=== PATIENT | male | born 1990 | race Caucasian/White ===

== ENCOUNTER → 2016-07-29 | Outpatient (CLI) | payer MEDICAID, SELFPAY | LOC: M OUTALCOH 08:05 | PROVIDERS: ATTEND Psychiatry & Neurology Psychiatry | DX: Z13.9 Encounter for screening, unspecified (principal); F10.20 Alcohol dependence, uncomplicated ==

== ENCOUNTER 2016-09-02 15:00 | Outpatient (RCR) | payer MEDICAID, OTHER | END 2016-09-07 | LOC: M OUTALCOH 15:00 | PROVIDERS: ATTEND Psychiatry & Neurology Psychiatry | DX: F10.20 Alcohol dependence, uncomplicated (principal); F17.200 Nicotine dependence, unspecified, uncomplicated ==

== ENCOUNTER 2016-10-05 15:00 | Outpatient (RCR) | payer MEDICAID | END 2016-10-07 | LOC: M OUTALCOH 15:00 | PROVIDERS: ATTEND Psychiatry & Neurology Psychiatry | DX: F10.20 Alcohol dependence, uncomplicated (principal); F17.200 Nicotine dependence, unspecified, uncomplicated ==

== ENCOUNTER 2016-11-03 16:00 | Outpatient (RCR) | payer OTHER, MEDICAID | END 2016-11-07 | LOC: M OUTALCOH 16:00 | PROVIDERS: ATTEND Psychiatry & Neurology Psychiatry | DX: F10.20 Alcohol dependence, uncomplicated (principal); F17.200 Nicotine dependence, unspecified, uncomplicated ==

== ENCOUNTER 2016-12-07 08:45 | Outpatient (RCR) | payer OTHER, MEDICAID | END 2016-12-08 | LOC: M OUTALCOH 08:45 | PROVIDERS: ATTEND Psychiatry & Neurology Psychiatry | DX: F10.20 Alcohol dependence, uncomplicated (principal); F17.200 Nicotine dependence, unspecified, uncomplicated ==

== ENCOUNTER 2017-01-04 08:00 | Outpatient (RCR) | payer MEDICAID, OTHER | END 2017-01-07 | LOC: M OUTALCOH 08:00 | PROVIDERS: ATTEND Psychiatry & Neurology Psychiatry | DX: F10.20 Alcohol dependence, uncomplicated (principal); F17.200 Nicotine dependence, unspecified, uncomplicated ==

== ENCOUNTER 2017-04-19 10:52 | Outpatient (RCR) | payer MEDICAID | END 2017-05-10 | LOC: M OUTALCOH 10:52 | DX: F10.20 Alcohol dependence, uncomplicated (principal); F17.200 Nicotine dependence, unspecified, uncomplicated ==

== ENCOUNTER 2018-10-28 10:29 | Inpatient (IN) | payer MEDICAID, OTHER ==
[~2018-10-28] VITALS: Ht 165.1 cm; Wt 65.6 kg
[2018-10-28] MEDS ORDERED: NS 1,000 ML IV ONE ×2 (11:45→13:45)
[2018-10-28 12:53] LABS: BASO % 0.5 % (0.0-1.0); EOS # 0.1 10^3/uL (0.0-0.50); EOS % 2.5 % (0.0-3.0); HEMOGLOBIN 16.7 g/dl (13.5-17.5); LYMPH # 1.1 10^3/uL (1.5-6.5); MEAN CORPUSCULAR HEMOGLOBIN 28.8 pg (27.0-33.0); MEAN CORPUSCULAR HGB CONC 34.8 g/dl (32.0-36.5); MEAN CORPUSCULAR VOLUME 82.8 fl (80.0-96.0); MONO # 0.7 10^3/uL (0.0-0.8); MONO % 11.8 % (0.0-5.0); NEUTROPHILS # 3.7 10^3/uL (1.8-7.7); NEUTROPHILS % 65.8 % (36.0-66.0); PLATELET COUNT, AUTOMATED 210 10^3/uL (150-450); WHITE BLOOD COUNT 5.7 10^3/uL (4.0-10.0)
[2018-10-28 13:07] LABS: INR 1.45; PROTHROMBIN TIME 17.4 SECONDS (11.8-14.0)
[2018-10-28 13:31] LABS: APPEARANCE, URINE MANUAL HAZY (CLEAR)
[2018-10-28 13:32] LABS: COLOR, URINE MANUAL AMBER (YELLOW); GLUCOSE, URINE (UA) MANUAL NEGATIVE (NEGATIVE); KETONE, URINE MANUAL 3+ mg/dL (NEGATIVE); PROTEIN, URINE MANUAL 1+ mg/dL (NEGATIVE)
[2018-10-28 13:33] LABS: BILIRUBIN, URINE MANUAL OBSCURED (NEGATIVE); BLOOD URINE MANUAL OBSCURED (NEGATIVE); LEUKOCYTE ESTERASE, URINE MAN OBSCURED (NEGATIVE); NITRITE, URINE MANUAL OBSCURED (NEGATIVE); UROBILINOGEN, URINE MANUAL OBSCURED mg/dl (NORMAL)
[2018-10-28 13:37] LABS: WBC, URINE 0-1 /hpf (0-3)
[2018-10-28 13:38] LABS: BACTERIA, URINE NONE SEEN; HYALINE CAST, URINE NONE SEEN /lpf (0-1); MUCUS, URINE SMALL AMOUNT (NEGATIVE); RBC, URINE NONE SEEN /hpf (0-3); SQUAMOUS EPITHELIAL CELL URINE NONE SEEN /hpf (SMALL AMT)
[2018-10-28 13:39] LABS: AMPHETAMINES LEVEL URINE POSITIVE (NEGATIVE); BARBITURATES URINE NEGATIVE (NEGATIVE); BENZODIAZEPINES URINE NEGATIVE (NEGATIVE); CANNABINOIDS URINE NEGATIVE (NEGATIVE); COCAINE METABOLITE URINE NEGATIVE (NEGATIVE); METHADONE URINE NEGATIVE (NEGATIVE); OPIATES URINE POSITIVE (NEGATIVE); PHENCYCLIDINE URINE NEGATIVE (NEGATIVE)
[2018-10-28 13:40] LABS: ALT/SGPT 3878 U/L (12-78); AMYLASE 17 U/L (25-115); BILIRUBIN,DIRECT 8.6 MG/DL (0.0-0.2); BILIRUBIN,TOTAL 12.8 MG/DL (0.2-1.0); BLOOD UREA NITROGEN 9 MG/DL (7-18); CALCIUM LEVEL 7.9 MG/DL (8.5-10.1); CARBON DIOXIDE LEVEL 27 MEQ/L (21-32); CHLORIDE LEVEL 98 MEQ/L (98-107); CK-MB VALUE MASS < 1.0 NG/ML (<3.6); CPK CREATINE PHOSPHOKINASE 51 U/L (39-308); CREATININE FOR GFR 0.73 MG/DL (0.70-1.30); GLOMERULAR FILTRATION RATE > 60.0 (>60); GLUCOSE, FASTING 63 MG/DL (70-100); LIPASE 84 U/L (73-393); MB/CK RELATIVE INDEX 1.96 (< OR =4); POTASSIUM SERUM 4.5 MEQ/L (3.5-5.1); SODIUM LEVEL 134 MEQ/L (136-145); TOTAL PROTEIN 6.2 GM/DL (6.4-8.2); TROPONIN I < 0.02 NG/ML (< 0.10)
[2018-10-28] MEDS ORDERED: DEXTROSE 50% 50 ML SYRINGE IV STA (13:54)
[2018-10-28 14:17] LABS: ACETAMINOPHEN LEVEL < 2.0 UG/ML (10.0-30.0); ETHYL ALCOHOL (ETHANOL) < 0.003 % (0.000-0.010); SALICYLATE LEVEL < 1.7 MG/DL (5.0-30.0)
--- NOTE | 2018-10-28 14:43 | REP ---
CHEST, TWO VIEWS: There is no evidence of acute infiltrate. No pleural effusion is seen. The heart is normal in size. The mediastinal silhouette is unremarkable. The visualized osseous structures are intact. IMPRESSION: No acute pulmonary disease. Electronically Signed by Henry Villavicencio MD 10/29/2018 12:03 A
--- NOTE | 2018-10-28 15:18 | REP ---
RIGHT UPPER QUADRANT ULTRASOUND: Real-time sonographic evaluation of the right upper quadrant performed. Gallbladder demonstrates significant diffuse gallbladder wall thickening up to 9 mm. There is gallbladder wall edema. No gallstones are seen in the gallbladder. There is no free fluid. There is no intrahepatic or extrahepatic biliary dilatation, common bile duct measuring 4 mm. The liver and pancreas demonstrate no gross abnormality, pancreas not optimally seen in the region of the tail due to overlying bowel gas. Right kidney demonstrates no hydronephrosis with normal size 11.2 cm in length. IMPRESSION: Diffuse significant gallbladder wall thickening and edema. No gallstones are seen and there is no free fluid or biliary dilatation. Electronically Signed by Henry Villavicencio MD 10/29/2018 12:09 A
[2018-10-28] MEDS: NS 1,000 ML IV SCH ×2 (16:37→23:29)
--- NOTE | 2018-10-28 17:01 | HPEPDOC ---
General Date of Admission Oct 28, 2018 at 15:53 Date of Service: Oct 28, 2018 Chief Complaint The patient is a 28-year-old male admitted with a reason for visit of Transaminitis. History of Present Illness 28-year-old male with past medical history of polysubstance abuse presented to the ER with a chief complaint of intractable nausea/vomiting and yellowish discoloration of the skin for the past 7 days. The patient endorses that he uses intravenous heroin and methamphetamine drugs 2 times a day for the last 7 days. Prior to that, the patient states that he has been using anywhere from 5-6 times a day. The patient denies any fevers, chills, recent travel, ingestion of foreign foods, or taking new medications or any [id number] medications in excess. The patient did admit to taking 1 tablet of 500 mg Tylenol daily for the last 7 days. He denies any alcohol use. In the ER, the patient was noted to have severely elevated liver function tests. This is likely secondary to acute viral hepatitis given his IV drug abuse. The case was discussed with GI, and the patient will be seen in consult. He will be admitted under the hospitalist service for supportive treatment and further clinical evaluation. Home Medications No Active Prescriptions or Reported Meds Allergies Coded Allergies: amoxicillin (Verified Adverse Reaction, Unknown, gets sick, 10/28/18) Past Medical History Medical History As noted in HPI. Surgical History None according to the patient Family History Significant Family History: No pertinent family hx Social History * Smoker: current smoker (patient admits to smoking a pack of tobacco daily.) Alcohol: Denies (states that he hasn't drank any alcohol in 2 years) Drugs: IV drug use (patient states that he injects methamphetamines and heroin twice a day for the past 7 days, and usually injects 5-6 times a day) Review of Systems Other systems 10 point review of systems negative unless otherwise specified in HPI. Physical Examination General Exam: Positive: Alert, Cooperative, Mild Distress (right upper quadrant abdominal pain), Other (jaundiced appearing) Eye Exam: Positive: Sclera icteric ENT Exam: Positive: Atraumatic, Mucous membr. moist/pink Neck Exam: Negative: JVD Chest Exam: Positive: Clear to auscultation, Normal air movement Heart Exam: Positive: Rate Normal, Normal S1, Normal S2 Abdomen Exam: Positive: Soft, Tenderness (tenderness to deep palpation in the right upper quadrant. No rebound tenderness, guarding, or rigidity noted.) Extremity Exam: Negative: Tenderness, Swelling Neuro Exam: Positive: Normal Speech Psych Exam: Positive: Mental status NL, Mood NL, Oriented x 3 Vital Signs Vital Signs Date Time Temp Pulse Resp B/P (MAP) Pulse Ox O2 Delivery O2 Flow Rate FiO2 10/28/18 14:44 98.3 85 16 117/66 (83) 98 Room Air Laboratory Data Labs 24H Laboratory Tests 2 10/28/18 12:46: Immature Granulocyte % (Auto) 0.4, White Blood Count 5.7, Red Blood Count 5.80, Hemoglobin 16.7, Hematocrit 48.0, Mean Corpuscular Volume 82.8, Mean Corpuscular Hemoglobin 28.8, Mean Corpuscular Hemoglobin Concent 34.8, Red Cell Distribution Width 14.3, Platelet Count 210, Neutrophils (%) (Auto) 65.8, Lymphocytes (%) (Auto) 19.0L, Monocytes (%) (Auto) 11.8H, Eosinophils (%) (Auto) 2.5, Basophils (%) (Auto) 0.5, Neutrophils # (Auto) 3.7, Lymphocytes # (Auto) 1.1L, Monocytes # (Auto) 0.7, Eosinophils # (Auto) 0.1, Basophils # (Auto) 0.0, Nucleated Red Blood Cells % (auto) 0.0, Prothrombin Time 17.4H, Prothromb Time International Ratio 1.45, Anion Gap 9, Glomerular Filtration Rate > 60.0, Calcium Level 7.9L, Aspartate Amino Transf (AST/SGOT) 3458H, Alanine Aminotransferase (ALT/SGPT) 3878H, Alkaline Phosphatase 289H, Total Bilirubin 12.8H, Direct Bilirubin 8.6H, Total Creatine Kinase 51, Creatine Kinase MB < 1.0, Creatine Kinase MB Relative Index 1.96, Troponin I < 0.02, Total Protein 6.2L, Albumin 3.0L, Albumin/Globulin Ratio 0.94L, Amylase Level 17L, Lipase 84, Salicylates Level < 1.7L, Acetaminophen Level < 2.0L, Ethyl Alcohol Level < 0.003 10/28/18 12:59: Bedside Urine Color (LAB) AMBERH, Bedside Urine Appearance (LAB) HAZYH, Bedside Urine pH (LAB) 6.0, Bedside Urine Specific [place] (LAB 1.030, Bedside Urine P rotein (LAB) 1+H, Bedside Urine Glucose (UA) NEGATIVE, Bedside Urine Ketones (LAB) 3+H, Bedside Urine Blood OBSCUREDH, Bedside Urine Nitrite (LAB) OBSCUREDH, Bedside Urine Bilirubin (LAB) OBSCUREDH, Bedside Urine Urobilinogen (LAB) OBSCUREDH, Bedside Urine Leukocyte Esterase (L OBSCUREDH, Urine WBC 0-1, Urine RBC NONE SEEN, Urine Squamous Epithelial Cells NONE SEEN, Urine Bacteria NONE SEEN, Urine Hyaline Casts NONE SEEN, Urine Mucus SMALL AMOUNTH, Urine Sediment Examination PERFORMED, Urine Amphetamines Screen POSITIVEH, Urine Benzodiazepines Screen NEGATIVE, Urine Opiates Screen POSITIVEH, Urine Methadone Screen NEGATIVE, Urine Barbiturates Screen NEGATIVE, Urine Phencyclidine Screen NEGATIVE, Urine Cocaine Metabolite Screen NEGATIVE, Urine Cannabinoids Screen NEGATIVE 10/28/18 14:49: Bedside Glucose (Misc Panel) 177H 10/28/18 14:52: Ammonia 25 CBC/BMP Laboratory Tests 10/28/18 12:46 Red Blood Count 5.80, Mean Corpuscular Volume 82.8, Mean Corpuscular Hemoglobin 28.8, Mean Corpuscular Hemoglobin Concent 34.8, Red Cell Distribution Width 14.3, Neutrophils (%) (Auto) 65.8, Lymphocytes (%) (Auto) 19.0 L, Monocytes (%) (Auto) 11.8 H, Eosinophils (%) (Auto) 2.5, Basophils (%) (Auto) 0.5, Neutrophils # (Auto) 3.7, Lymphocytes # (Auto) 1.1 L, Monocytes # (Auto) 0.7, Eosinophils # (Auto) 0.1, Basophils # (Auto) 0.0 Plan / VTE VTE Prophylaxis Ordered?: Yes Plan Plan Severely Elevated Liver Function Tests Likely 2/2 IV Drug Abuse, and possible acute viral hepatitis U/S GB notable for wall thickening, edema, no stones noted--no CBD dilatation noted Tylenol level within normal limits, INR elevated at 1.45 Renal function and mentation intact Case discussed with Dr. Palma of GI, will see in consultation. Acute Hepatitis panel ordered, we will serially monitor the patient's neurological function, and renal function If the patient's renal function worsens, INR elevates further, or he has a change in mental status we will consider transfer to a tertiary care center. IV drug abuse Patient counseled on cessation DVT prophylaxis Marion/LURDES Chambers MD Oct 28, 2018 17:01
[2018-10-28 18:34] LABS: INR 1.44; PROTHROMBIN TIME 17.3 SECONDS (11.8-14.0)
[2018-10-28 19:00] LABS: CK-MB VALUE MASS < 1.0 NG/ML (<3.6); CPK CREATINE PHOSPHOKINASE 29 U/L (39-308); MB/CK RELATIVE INDEX 3.45 (< OR =4); TROPONIN I < 0.02 NG/ML (< 0.10)
[2018-10-28 19:20] VITALS: BP 126/74
--- NOTE | 2018-10-28 19:48 | ECGEPIP ---
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
[2018-10-28] MEDS ORDERED: KETOROLAC 60 MG/2 ML VIAL (J1885) IM ONE (23:00)
[2018-10-29 06:00] VITALS: BP 126/88
[2018-10-29 06:13] LABS: INR 1.36; PROTHROMBIN TIME 16.5 SECONDS (11.8-14.0)
[2018-10-29 06:14] LABS: HEMATOCRIT 44.1 % (42.0-52.0); HEMOGLOBIN 15.1 g/dl (13.5-17.5); MEAN CORPUSCULAR HEMOGLOBIN 28.7 pg (27.0-33.0); MEAN CORPUSCULAR HGB CONC 34.2 g/dl (32.0-36.5); MEAN CORPUSCULAR VOLUME 83.7 fl (80.0-96.0); PLATELET COUNT, AUTOMATED 231 10^3/uL (150-450); RED BLOOD COUNT 5.27 10^6/uL (4.30-6.10); WHITE BLOOD COUNT 5.7 10^3/uL (4.0-10.0)
[2018-10-29] MEDS: NS 1,000 ML IV SCH ×3 (06:30→22:49)
[2018-10-29 06:50] LABS: ALBUMIN 2.5 GM/DL (3.2-5.2); ALT/SGPT 3254 U/L (12-78); BILIRUBIN,TOTAL 11.3 MG/DL (0.2-1.0); BLOOD UREA NITROGEN 5 MG/DL (7-18); CALCIUM LEVEL 7.7 MG/DL (8.5-10.1); CARBON DIOXIDE LEVEL 26 MEQ/L (21-32); CHLORIDE LEVEL 109 MEQ/L (98-107); GLOMERULAR FILTRATION RATE > 60.0 (>60); GLUCOSE, FASTING 81 MG/DL (70-100); MAGNESIUM LEVEL 2.1 MG/DL (1.8-2.4); POTASSIUM SERUM 3.9 MEQ/L (3.5-5.1); SODIUM LEVEL 140 MEQ/L (136-145); TOTAL PROTEIN 5.8 GM/DL (6.4-8.2)
[2018-10-29 10:36] LABS: HEPATITIS A ANTIBODY IGM POSITIVE (NEGATIVE); HEPATITIS B CORE ANTIBODY IGM NEGATIVE (NEGATIVE); HEPATITIS B SURFACE ANTIGEN NEGATIVE (NEGATIVE); HEPATITIS C VIRUS ABY INDEX 0.1 INDEX (<0.8)
[2018-10-29] MEDS: KETOROLAC 30 MG/ML VIAL (J1885) IV PRN ×2 (12:19→22:51)
[2018-10-29 14:00] VITALS: BP 120/75
--- NOTE | 2018-10-29 18:02 | CR.PDOC ---
General Date of Consultation: Oct 29, 2018 Referring Provider: LURDES BUTT MD Attending Physician: UYEN BLANCAS MD Consultation REASON FOR CONSULTATION/CHIEF COMPLAINT: Abnormal Liver tests. HISTORY OF PRESENT ILLNESS: Victorino Saeed is a 28 year old male patient with history of multiple substance abuse (IV heroin and IV methamphetamine), presented to the ED with one week nausea/vomiting and yellowing of the skin. The patient and his girlfriend report that once his nausea started almost a week ago, he began vomiting several times a day and sometimes dry-heaving. In addition, the patient reports epigastric and RUQ pain, 6/10 in severity during this time. He also reports subjective fevers/chills, and thinks he has had about 20 lb weight loss in the past several months. He has taken 1 tablet of 500mg Tylenol every day for the past 7 days. He has had no diarrhea during this time frame, but reports severe constipation and only has a bowel movement every 4-5 days. He denies any black tarry or bloody stools. ALLERGIES: Please see below. HOME MEDICATIONS: None PAST MEDICAL HISTORY: As above. PAST SURGICAL HISTORY: none reported FAMILY HISTORY: noncontributory SOCIAL HISTORY: Smokes 1 ppd Reports history of heavy alcohol use in the past (~30 pack of beer/day), but no longer consuming alcohol Reports drug use: IV heroin, IV methamphetamine (injects 5-6 times a day) and reports he does not always use clean needles REVIEW OF SYSTEMS: CONSTITUTIONAL: Overall reports subjective fevers/chills/night sweats HEENT: No ear discharge/pain, no dysphagia CARDIOVASCULAR: No chest pain, no palpitations, no leg swelling RESPIRATORY: No shortness of breath, no wheezing, no cough GENITOURINARY: No hematuria, no burning during urination MUSCULOSKELETAL: No joint pain, ambulating well GASTROINTESTINAL: as stated above SKIN: no new rashes NEUROLOGICAL: No loss of sensation PSYCHIATRIC: depressed mood ENDOCRINE: no hot/cold intolerance HEMATOLOGIC/LYMPHATIC: no new bruising/lumps/bumps PHYSICAL EXAMINATION: VITAL SIGNS: Please see below. GENERAL APPEARANCE: patient is laying in bed, appears stated age, no acute distress, calm, conversive HEENT: Some scleral icterus noted. normal oropharynx. no enlarged cervical lymph nodes RESPIRATORY: clear to auscultation bilaterally without any adventitious breath sounds appreciated CARDIOVASCULAR: normal S1/S2, no murmurs/rubs/gallops appreciated ABDOMEN: soft, tender to palpation in epigastric region and RUQ, no masses or o rganomegaly, + bowel sounds EXTREMITIES: no pedal edema, pulses palpable NEUROLOGICAL: CN 2-12 intact without any focal deficits PSYCHIATRIC: normal mood/affect LABORATORY DATA: Please see below. Imaging: reviewed. Impression: 28 Year old male with history of IV drug use and heavy alcohol use in past, with acute onset of nausea/vomiting and gradually progressing jaundice for past 1 week, found to have severely elevated transaminitis in labs, RUQ US demonstrates gallbladder wall thickening but no evidence of obstruction or stricture. DDx is most likely acute viral hepatitis vs autoimmune hepatitis vs Ischemic hepatitis. very unlikely NSAIDs and medication related. Recommendations: - Monitor Liver panel, BUN/ Cr , ptt/ INR, Mental status closely. - Avoid hepatotoxic medications. - Obtain LDH ( add on the the initial labs) - Diet as tolerated. - IV hydration. - High protein diet. - If patient continues to report nausea, would recommend Zofran. - Based on the clinical course if worsening liver function, Renal function or INR, or mental status to refer to liver center. - Supportive care until trending down of liver abnormalities. Plan of care discussed with patient and recommendations communicated to Primary team. Laboratory Data Labs 24H Laboratory Tests 2 10/28/18 12:46: Immature Granulocyte % (Auto) 0.4, White Blood Count 5.7, Red Blood Count 5.80, Hemoglobin 16.7, Hematocrit 48.0, Mean Corpuscular Volume 82.8, Mean Corpuscular Hemoglobin 28.8, Mean Corpuscular Hemoglobin Concent 34.8, Red Cell Distribution Width 14.3, Platelet Count 210, Neutrophils (%) (Auto) 65.8, Lymphocytes (%) (Auto) 19.0L, Monocytes (%) (Auto) 11.8H, Eosinophils (%) (Auto) 2.5, Basophils (%) (Auto) 0.5, Neutrophils # (Auto) 3.7, Lymphocytes # (Auto) 1.1L, Monocytes # (Auto) 0.7, Eosinophils # (Auto) 0.1, Basophils # (Auto) 0.0, Nucleated Red Blood Cells % (auto) 0.0, Prothrombin Time 17.4H, Prothromb Time International Ratio 1.45, Anion Gap 9, Glomerular Filtration Rate > 60.0, Calcium Level 7.9L, Aspartate Amino Transf (AST/SGOT) 3458H, Alanine Aminotransferase (ALT/SGPT) 3878H, Alkaline Phosphatase 289H, Total Bilirubin 12.8H, Direct Bilirubin 8.6H, Total Creatine Kinase 51, Creatine Kinase MB < 1.0, Creatine Kinase MB Relative Index 1.96, Troponin I < 0.02, Total Protein 6.2L, Albumin 3.0L, Albumin/Globulin Ratio 0.94L, Amylase Level 17L, Lipase 84, Salicylates Level < 1.7L, Acetaminophen Level < 2.0L, Ethyl Alcohol Level < 0.003 10/28/18 12:59: Bedside Urine Color (LAB) AMBERH, Bedside Urine Appearance (LAB) HAZYH, Bedside Urine pH (LAB) 6.0, Bedside Urine Specific [place] (LAB 1.030, Bedside Urine Protein (LAB) 1+H, Bedside Urine Glucose (UA) NEGATIVE, Bedside Urine Ketones (LAB) 3+H, Bedside Urine Blood OBSCUREDH, Bedside Urine Nitrite (LAB) OBSCUREDH, Bedside Urine Bilirubin (LAB) OBSCUREDH, Bedside Urine Urobilinogen (LAB) OBSCUREDH, Bedside Urine Leukocyte Esterase (L OBSCUREDH, Urine WBC 0-1, Urine RBC NONE SEEN, Urine Squamous Epithelial Cells NONE SEEN, Urine Bacteria NONE SEEN, Urine Hyaline Casts NONE SEEN, Urine Mucus SMALL AMOUNTH, Urine Sediment Examination PERFORMED, Urine Amphetamines Screen POSITIVEH, Urine Benzodiazepines Screen NEGATIVE, Urine Opiates Screen POSITIVEH, Urine Methadone Screen NEGATIVE, Urine Barbiturates Screen NEGATIVE, Urine Phencyclidine Screen NEGATIVE, Urine Cocaine Metabolite Screen NEGATIVE, Urine Cannabinoids Screen NEGATIVE 10/28/18 14:49: Bedside Glucose (Misc Panel) 177H 10/28/18 14:52: Ammonia 25 10/28/18 17:59: Prothrombin Time 17.3H, Prothromb Time International Ratio 1.44, Total Creatine Kinase 29L, Creatine Kinase MB < 1.0, Creatine Kinase MB Relative Index 3.45, Troponin I < 0.02 10/29/18 05:33: Prothrombin Time 16.5H, Prothromb Time International Ratio 1.36, Nucleated Red Blood Cells % (auto) 0.0, Anion Gap 5L, Glomerular Filtration Rate > 60.0, Blood Urea Nitrogen 5L, Creatinine 0.60L, Sodium Level 140, Potassium Level 3.9, Chloride Level 109H, Carbon Dioxide Level 26, Calcium Level 7.7L, Aspartate Amino Transf (AST/SGOT) 2339H, Alanine Aminotransferase (ALT/SGPT) 3254H, Alkaline Phosphatase 247H, Total Bilirubin 11.3H, Total Protein 5.8L, Albumin 2.5L, Magnesium Level 2.1, Albumin/Globulin Ratio 0.76L CBC/BMP Laboratory Tests 10/28/18 12:46 Red Blood Count 5.80, Mean Corpuscular Volume 82.8, Mean Corpuscular Hemoglobin 28.8, Mean Corpuscular Hemoglobin Concent 34.8, Red Cell Distribution Width 14.3, Neutrophils (%) (Auto) 65.8, Lymphocytes (%) (Auto) 19.0 L, Monocytes (%) (Auto) 11.8 H, Eosinophils (%) (Auto) 2.5, Basophils (%) (Auto) 0.5, Neutrophils # (Auto) 3.7, Lymphocytes # (Auto) 1.1 L, Monocytes # (Auto) 0.7, Eosinophils # (Auto) 0.1, Basophils # (Auto) 0.0 10/29/18 05:33 Red Blood Count 5.27, Mean Corpuscular Volume 83.7, Mean Corpuscular Hemoglobin 28.7, Mean Corpuscular Hemoglobin Concent 34.2, Red Cell Distribution Width 14.4, Calcium Level 7.7 L, Aspartate Amino Transf (AST/SGOT) 2339 H, Alanine Aminotransferase (ALT/SGPT) 3254 H, Alkaline Phosphatase 247 H, Total Bilirubin 11.3 H, Total Protein 5.8 L, Albumin 2.5 L Allergies Coded Allergies: amoxicillin (Verified Adverse Reaction, Unknown, gets sick, 10/28/18) Home Medications No Active Prescriptions or Reported Meds WERO SANDERSON MD Oct 29, 2018 10:24 UYEN BLANCAS MD Oct 29, 2018 18:02
[2018-10-29 18:42] LABS: INR 1.25; PROTHROMBIN TIME 15.4 SECONDS (11.8-14.0)
[2018-10-29 18:57] LABS: BLOOD UREA NITROGEN 4 MG/DL (7-18); CALCIUM LEVEL 8.5 MG/DL (8.5-10.1); CARBON DIOXIDE LEVEL 29 MEQ/L (21-32); CHLORIDE LEVEL 107 MEQ/L (98-107); CREATININE FOR GFR 0.69 MG/DL (0.70-1.30); GLOMERULAR FILTRATION RATE > 60.0 (>60); GLUCOSE, FASTING 97 MG/DL (70-100); POTASSIUM SERUM 3.9 MEQ/L (3.5-5.1); SODIUM LEVEL 140 MEQ/L (136-145)
[2018-10-29 19:44] LABS: HIV 1&2 SCREEN CENTAUR NEGATIVE (NEGATIVE); LDH LACTATE DEHYDROGENASE 402 U/L (87-241)
--- NOTE | 2018-10-29 20:38 | IPNPDOC ---
Subjective Date Seen The patient was seen on 10/29/18. at 1045am Subjective Chief Complaint/HPI abdominal pain Events since last encounter patient continues to have abdominal pain Objective Physical Examination General Exam: Positive: Alert, Cooperative, No Acute Distress, Mild Distress, Other (jaundiced appearing) Eye Exam: Positive: Sclera icteric ENT Exam: Positive: Atraumatic, Mucous membr. moist/pink Neck Exam: Negative: JVD Chest Exam: Positive: Clear to auscultation, Normal air movement Heart Exam: Positive: Rate Normal, Normal S1, Normal S2 Abdomen Exam: Positive: Soft, Tenderness (tenderness to deep palpation in the right upper quadrant. No rebound tenderness, guarding, or rigidity noted.) Extremity Exam: Negative: Tenderness, Swelling Neuro Exam: Positive: Normal Speech Psych Exam: Positive: Mental status NL, Mood NL, Oriented x 3 Assessment /Plan Assessment is a 28 yr old M w a PMH of polysubstance abuse who is admitted for management of viral vs alcoholic hepatitis 1.acute hepatitis -possibly 2/2 Hep A vs drugs & alcohol -no signs of overt hepatic encephalopathy & ammonia wnl -LFTs trending down Plan: continue to trend LFTs / f/u w GI / Toraldon PRN for pain 2. nausea and vomiting Plan: zofran PRN DISPO: pending improvement Plan/VTE VTE Prophylaxis Ordered?: Yes VS, I&O, 24H, Fishbone Vital Signs/I&O Vital Signs Date Time Temp Pulse Resp B/P (MAP) Pulse Ox O2 Delivery O2 Flow Rate FiO2 10/29/18 14:00 98.1 77 18 120/75 (90) 99 10/28/18 17:22 Room Air I&O- Last 24 Hours up to 6 AM 10/29/18 06:00 Intake Total 3900 ml Output Total 1900 ml Balance 2000 ml Laboratory Data 24H LABS Laboratory Tests 2 10/29/18 05:33: Nucleated Red Blood Cells % (auto) 0.0, Prothrombin Time 16.5H, Prothromb Time International Ratio 1.36, Anion Gap 5L, Glomerular Filtration Rate > 60.0, Blood Urea Nitrogen 5L, Creatinine 0.60L, Sodium Level 140, Potassium Level 3.9, Chloride Level 109H, Carbon Dioxide Level 26, Calcium Level 7.7L, Aspartate Amino Transf (AST/SGOT) 2339H, Alanine Aminotransferase (ALT/SGPT) 3254H, Alkaline Phosphatase 247H, Total Bilirubin 11.3H, Total Protein 5.8L, Albumin 2 .5L, Magnesium Level 2.1, Albumin/Globulin Ratio 0.76L 10/29/18 18:03: Prothrombin Time 15.4H, Prothromb Time International Ratio 1.25, Anion Gap 4L, Glomerular Filtration Rate > 60.0, Blood Urea Nitrogen 4L, Creatinine 0.69L, Sodium Level 140, Potassium Level 3.9, Chloride Level 107, Carbon Dioxide Level 29, Calcium Level 8.5, Lactate Dehydrogenase 402H, HIV Antigen/Antibody Combo Qual NEGATIVE CBC/BMP Laboratory Tests 10/29/18 05:33 Red Blood Count 5.27, Mean Corpuscular Volume 83.7, Mean Corpuscular Hemoglobin 28.7, Mean Corpuscular Hemoglobin Concent 34.2, Red Cell Distribution Width 14.4, Calcium Level 7.7 L, Aspartate Amino Transf (AST/SGOT) 2339 H, Alanine Aminotransferase (ALT/SGPT) 3254 H, Alkaline Phosphatase 247 H, Total Bilirubin 11.3 H, Total Protein 5.8 L, Albumin 2.5 L 10/29/18 18:03 Calcium Level 8.5 TRELL MERCADO MD Oct 29, 2018 20:38
[2018-10-29 22:00] VITALS: BP 127/80
[2018-10-29] MEDS: DOCUSATE SODIUM 100 MG CAP PO PRN (22:49)
[2018-10-30] MEDS: ONDANSETRON 4MG/2ML VIAL (J2405) IV PRN ×2 (05:26→17:56)
[2018-10-30] MEDS: NS 1,000 ML IV SCH ×4 (05:27→20:50)
[2018-10-30 06:00] VITALS: BP 123/81
[2018-10-30 06:06] LABS: HEMATOCRIT 42.4 % (42.0-52.0); HEMOGLOBIN 14.6 g/dl (13.5-17.5); MEAN CORPUSCULAR HEMOGLOBIN 28.2 pg (27.0-33.0); MEAN CORPUSCULAR HGB CONC 34.4 g/dl (32.0-36.5); PLATELET COUNT, AUTOMATED 256 10^3/uL (150-450); RED BLOOD COUNT 5.17 10^6/uL (4.30-6.10); WHITE BLOOD COUNT 6.9 10^3/uL (4.0-10.0)
[2018-10-30 06:20] LABS: INR 1.23; PROTHROMBIN TIME 15.2 SECONDS (11.8-14.0)
[2018-10-30 06:24] LABS: ALBUMIN 2.6 GM/DL (3.2-5.2); ALT/SGPT 2383 U/L (12-78); BILIRUBIN,TOTAL 11.9 MG/DL (0.2-1.0); BLOOD UREA NITROGEN 4 MG/DL (7-18); CALCIUM LEVEL 7.9 MG/DL (8.5-10.1); CARBON DIOXIDE LEVEL 26 MEQ/L (21-32); CHLORIDE LEVEL 108 MEQ/L (98-107); GLOMERULAR FILTRATION RATE > 60.0 (>60); GLUCOSE, FASTING 128 MG/DL (70-100); POTASSIUM SERUM 3.5 MEQ/L (3.5-5.1); SODIUM LEVEL 139 MEQ/L (136-145); TOTAL PROTEIN 5.9 GM/DL (6.4-8.2)
[2018-10-30 07:06] LABS: EOSINOPHILS 1 % (0-5); LYMPHOCYTES 22 % (16-52); MONOCYTES 9 % (0-8); NEUTROPHILS 68 % (35-75); PLATELET ESTIMATE NORMAL (NORMAL)
[2018-10-30] MEDS: OMEPRAZOLE 20 MG CAP PO SCH ×2 (09:00→20:50)
[2018-10-30] MEDS: KETOROLAC 30 MG/ML VIAL (J1885) IV PRN ×2 (11:22→22:36)
--- NOTE | 2018-10-30 11:53 | IPNPDOC ---
Subjective Date Seen The patient was seen on 10/30/18. at 1000am Subjective Chief Complaint/HPI abdominal pain Events since last encounter pt c/o of bloating and persistent abd pain Objective Physical Examination General Exam: Positive: Alert, Cooperative, No Acute Distress, Mild Distress, Other (jaundiced appearing) Eye Exam: Positive: Sclera icteric ENT Exam: Positive: Atraumatic, Mucous membr. moist/pink Neck Exam: Negative: JVD Chest Exam: Positive: Clear to auscultation, Normal air movement Heart Exam: Positive: Rate Normal, Normal S1, Normal S2 Abdomen Exam: Positive: Soft, Tenderness (tenderness to deep palpation in the right upper quadrant. No rebound tenderness, guarding, or rigidity noted.) Extremity Exam: Negative: Tenderness, Swelling Neuro Exam: Positive: Normal Speech Psych Exam: Positive: Mental status NL, Mood NL, Oriented x 3 Assessment /Plan Assessment is a 28 yr old M w a PMH of polysubstance abuse who is admitted for management of abdominal pain 2/2 Hepatitis (viral vs alcoholic). 1.acute hepatitis -possibly 2/2 Hep A vs drugs & alcohol -LFTs trending down Plan: continue to trend LFTs / f/u w GI / Toraldon PRN for pain 2. nausea and vomiting Plan: zofran PRN DISPO: pending resolution of transaminitis Plan/VTE VTE Prophylaxis Ordered?: Yes VS[facility]O Vital Signs Date Time Temp Pulse Resp B/P (MAP) Pulse Ox O2 Delivery O2 Flow Rate FiO2 10/30/18 06:00 98.4 76 16 123/81 (95) 99 10/28/18 17:22 Room Air I&O- Last 24 Hours up to 6 AM 10/30/18 05:59 Intake Total 4643 ml Balance 4643 ml Laboratory Data 24H LABS Laboratory Tests 2 10/29/18 18:03: Prothrombin Time 15.4H, Prothromb Time International Ratio 1.25, Anion Gap 4L, Glomerular Filtration Rate > 60.0, Blood Urea Nitrogen 4L, Creatinine 0.69L, Sodium Level 140, Potassium Level 3.9, Chloride Level 107, Carbon Dioxide Level 29, Calcium Level 8.5, Lactate Dehydrogenase 402H, HIV Antigen/Antibody Combo Qual NEGATIVE 10/30/18 05:31: Prothrombin Time 15.2H, Prothromb Time International Ratio 1.23, Anion Gap 5L, Glomerular Filtration Rate > 60.0, Blood Urea Nitrogen 4L, Creatinine 0.60L, Sodium Level 139, Potassium Level 3.5, Chloride Level 108H, Carbon Dioxide Level 26, Calcium Level 7.9L, Nucleated Red Blood Cells % (auto) 0.0, Neutrophils 68, Lymphocytes (Manual) 22, Monocytes (Manual) 9H, Eosinophils (Manual) 1, Platelet Estimate NORMAL, Red Blood Cell Morphology NORMAL, Aspartate Amino Transf (AST/SGOT) 997H, Alanine Aminotransferase (ALT/SGPT) 2383H, Alkaline Phosphatase 251H, Total Bilirubin 11.9H, Total Protein 5.9L, Albumin 2.6L, Albumin/Globulin Ratio 0.79L CBC/BMP Laboratory Tests 10/29/18 18:03 Calcium Level 8.5 10/30/18 05:31 Calcium Level 7.9 L, Red Blood Count 5.17, Mean Corpuscular Volume 82.0, Mean Corpuscular Hemoglobin 28.2, Mean Corpuscular Hemoglobin Concent 34.4, Red Cell Distribution Width 14.7 H, Aspartate Amino Transf (AST/SGOT) 997 H, Alanine Aminotransferase (ALT/SGPT) 2383 H, Alkaline Phosphatase 251 H, Total Bilirubin 11.9 H, Total Protein 5.9 L, Albumin 2.6 L TRELL MERCADO MD Oct 30, 2018 11:53
[2018-10-30] MEDS: NICOTINE 14 MG/24 HR TRANSDERMAL TD SCH (13:11)
[2018-10-30] MEDS: DOCUSATE SODIUM 100 MG CAP PO PRN (13:11)
[2018-10-30 14:00] VITALS: BP_SYST 121; BP_SYST 123; BP_DIAS 81; BP_DIAS 82
[2018-10-30 22:00] VITALS: BP 125/83
[2018-10-31 06:00] VITALS: BP 135/81
[2018-10-31 06:14] LABS: HEMATOCRIT 45.6 % (42.0-52.0); HEMOGLOBIN 15.9 g/dl (13.5-17.5); MEAN CORPUSCULAR HEMOGLOBIN 28.1 pg (27.0-33.0); MEAN CORPUSCULAR HGB CONC 34.9 g/dl (32.0-36.5); MEAN CORPUSCULAR VOLUME 80.7 fl (80.0-96.0); PLATELET COUNT, AUTOMATED 281 10^3/uL (150-450); RED BLOOD COUNT 5.65 10^6/uL (4.30-6.10); WHITE BLOOD COUNT 7.6 10^3/uL (4.0-10.0)
[2018-10-31 06:26] LABS: INR 1.09; PROTHROMBIN TIME 13.8 SECONDS (11.8-14.0)
[2018-10-31 06:42] LABS: EOSINOPHILS 1 % (0-5); LYMPHOCYTES 35 % (16-52); MONOCYTES 1 % (0-8); NEUTROPHILS 63 % (35-75)
[2018-10-31 06:43] LABS: PLATELET ESTIMATE NORMAL (NORMAL)
[2018-10-31 06:45] LABS: ALBUMIN 2.7 GM/DL (3.2-5.2); ALT/SGPT 1876 U/L (12-78); BILIRUBIN,TOTAL 12.9 MG/DL (0.2-1.0); BLOOD UREA NITROGEN 5 MG/DL (7-18); CALCIUM LEVEL 8.3 MG/DL (8.5-10.1); CARBON DIOXIDE LEVEL 21 MEQ/L (21-32); CHLORIDE LEVEL 109 MEQ/L (98-107); CREATININE FOR GFR 0.68 MG/DL (0.70-1.30); GLOMERULAR FILTRATION RATE > 60.0 (>60); GLUCOSE, FASTING 86 MG/DL (70-100); POTASSIUM SERUM 3.8 MEQ/L (3.5-5.1); SODIUM LEVEL 138 MEQ/L (136-145); TOTAL PROTEIN 6.7 GM/DL (6.4-8.2)
[2018-10-31] MEDS: NS 1,000 ML IV SCH ×3 (06:47→21:53)
[2018-10-31] MEDS: NICOTINE 14 MG/24 HR TRANSDERMAL TD SCH (08:39)
[2018-10-31] MEDS: OMEPRAZOLE 20 MG CAP PO SCH (08:39)
[2018-10-31] MEDS: DOCUSATE SODIUM 100 MG CAP PO PRN (08:41)
[2018-10-31] MEDS: KETOROLAC 30 MG/ML VIAL (J1885) IV PRN ×2 (11:29→21:53)
[2018-10-31 14:07] LABS: ANTINUCLEAR ANTIBODIES DIRECT Negative (Negative)
[2018-10-31 22:00] VITALS: BP 121/77
[2018-11-01 06:00] VITALS: BP 130/71
[2018-11-01 06:16] LABS: HEMATOCRIT 42.2 % (42.0-52.0); HEMOGLOBIN 14.8 g/dl (13.5-17.5); MEAN CORPUSCULAR HEMOGLOBIN 28.1 pg (27.0-33.0); MEAN CORPUSCULAR HGB CONC 35.1 g/dl (32.0-36.5); MEAN CORPUSCULAR VOLUME 80.2 fl (80.0-96.0); PLATELET COUNT, AUTOMATED 305 10^3/uL (150-450); RED BLOOD COUNT 5.26 10^6/uL (4.30-6.10)
[2018-11-01 06:41] LABS: INR 1.13; PROTHROMBIN TIME 14.2 SECONDS (11.8-14.0)
[2018-11-01 06:53] LABS: ALBUMIN 2.6 GM/DL (3.2-5.2); ALT/SGPT 1254 U/L (12-78); BILIRUBIN,TOTAL 10.8 MG/DL (0.2-1.0); BLOOD UREA NITROGEN 6 MG/DL (7-18); CALCIUM LEVEL 8.2 MG/DL (8.5-10.1); CARBON DIOXIDE LEVEL 25 MEQ/L (21-32); CHLORIDE LEVEL 107 MEQ/L (98-107); GLOMERULAR FILTRATION RATE > 60.0 (>60); GLUCOSE, FASTING 92 MG/DL (70-100); POTASSIUM SERUM 3.8 MEQ/L (3.5-5.1); SODIUM LEVEL 139 MEQ/L (136-145); TOTAL PROTEIN 6.3 GM/DL (6.4-8.2)
[2018-11-01] MEDS: NS 1,000 ML IV SCH (07:06)
[2018-11-01] MEDS: OMEPRAZOLE 20 MG CAP PO SCH (08:13)
[2018-11-01] MEDS: NICOTINE 14 MG/24 HR TRANSDERMAL TD SCH (08:13)
[2018-11-01 14:00] VITALS: BP 130/88
--- NOTE | 2018-11-01 14:35 | DS.PDOC ---
Discharge Summary General Date of Admission Oct 28, 2018 at 15:53 Date of Discharge 11.01.18 Primary Care Physician: A Attending Physician: TRELL MERCADO MD Specialist/Consultants Involve: UYEN BLANCAS MD Specialist/Consultants Involve GI Discharge Summary PROCEDURES PERFORMED DURING STAY: [None]. ADMITTING DIAGNOSES: 1. Elevated LFTs DISCHARGE DIAGNOSES: 1. Hepatitis A COMPLICATIONS/CHIEF COMPLAINT: Transaminitis. HISTORY OF PRESENT ILLNESS: Per HPI this is a 28-year-old male with a past medical history of polysubstance abuse who presented to the ED on the with complaints of nausea, vomiting and jaundice. Based on the initial workup, he was diagnosed with transaminitis of unclear cause. HOSPITAL COURSE: He was admitted to the hospital. Gastric tortuous consulted. The workup confirmed the presence of hepatitis A. His LFTs were trended daily and noted to trend down. On November 01, the patient was cleared to go home by gastroenterology. He was examined at 2:20 PM and reported that his nausea, vomiting and abdominal pain had resolved. He did complain of mild right lower quadrant abdominal pain. Upon further questioning, he reported that he had not only had 1 bowel movement during this admission. DISCHARGE MEDICATIONS: Please see below. ALLERGIES: Please see below. PHYSICAL EXAMINATION ON DISCHARGE: VITAL SIGNS: Please see below. GENERAL: Well-nourished, well-developed, appears stated age. HEENT: Normocephalic, atraumatic. Mucous members are moist and pink, mild scleral icterus NECK: Supple CARDIOVASCULAR EXAMINATION: Regular rate and rhythm. No murmurs, rubs or gallops RESPIRATORY EXAMINATION: Clear to auscultation bilaterally on room air ABDOMINAL EXAMINATION: Soft, slightly tender to palpation at the right lower quadrant EXTREMITIES: Range of motion intact 4 extremities SKIN: Mild jaundice NEUROLOGICAL EXAMINATION: CN II to 12 grossly intact. Speech not dysarthric PSYCHIATRIC EXAMINATION: Alert and oriented 3, able to understand and follow commands LABORATORY DATA: Please see below. IMAGING: Chest x-ray done on October 28 was unremarkable. Ultrasound of the gallbladder, Christophe October 28 showed diffuse significant gallbladder wall thickening and edema without stones, free air or biliary dilation. Dilated dictation PROGNOSIS: Fair ACTIVITY: [As tolerated]. DIET: Regular DISCHARGE PLAN: [Home] DISPOSITION: . DISCHARGE INSTRUCTIONS: 1. The patient was instructed to follow up with GI within the next 2 weeks. 2. The patient was instructed to follow-up with his primary care doctor within the next week ITEMS TO FOLLOWUP ON ON OUTPATIENT: 1. LFTs DISCHARGE CONDITION: [Stable]. TIME SPENT ON DISCHARGE: Greater than 10 minutes. Vital Signs/I&Os Vital Signs Date Time Temp Pulse Resp B/P (MAP) Pulse Ox O2 Delivery O2 Flow Rate FiO2 11/01/18 14:00 97.2 58 130/88 (102) 100 11/01/18 06:00 17 10/28/18 17:22 Room Air I&O- Last 24 Hours up to 6 AM 11/01/18 06:00 Intake Total 2970 ml Output Total 0 ml Balance 2970 ml Laboratory Data Labs 24H Laboratory Tests 2 11/01/18 05:33: Nucleated Red Blood Cells % (auto) 0.0, Prothrombin Time 14.2H, Prothromb Time International Ratio 1.13, Anion Gap 7L, Glomerular Filtration Rate > 60.0, Blood Urea Nitrogen 6L, Creatinine 0.70, Sodium Level 139, Potassium Level 3.8, Chloride Level 107, Carbon Dioxide Level 25, Calcium Level 8.2L, Aspartate Amino Transf (AST/SGOT) 211H, Alanine Aminotransferase (ALT/SGPT) 1254H, Alkaline Phosphatase 274H, Total Bilirubin 10.8H, Total Protein 6.3L, Albumin 2.6L, Albumin/Globulin Ratio 0.70L CBC/BMP Laboratory Tests 11/01/18 05:33 Red Blood Count 5.26, Mean Corpuscular Volume 80.2, Mean Corpuscular Hemoglobin 28.1, Mean Corpuscular Hemoglobin Concent 35.1, Red Cell Distribution Width 15.1 H, Calcium Level 8.2 L, Aspartate Amino Transf (AST/SGOT) 211 H, Alanine Aminotransferase (ALT/SGPT) 1254 H, Alkaline Phosphatase 274 H, Total Bilirubin 10.8 H, Total Protein 6.3 L, Albumin 2.6 L Discharge Medications No Active Prescriptions or Reported Meds Allergies Coded Allergies: amoxicillin (Verified Adverse Reaction, Unknown, gets sick, 10/28/18) TRELL MERCADO MD Nov 01, 2018 14:35
[2018-11-03 00:06] LABS: EBV VIRAL CAPSID AG IgG > 600.0 U/mL (0.0-17.9); EBV VIRAL CAPSID AG IgM <36.0 U/mL (0.0-35.9); HEPATITIS E IgM ANTIBODY Negative (Negative)
== END 2018-11-01 15:50 | disposition home or self-care (01) ==
LOC: M ED 10:29 → M ED INP 15:53 → M MSPAV 19:20
PROVIDERS: ADMIT Internal Medicine; ATTEND Internal Medicine
DX: B15.9 Hepatitis A without hepatic coma (principal); F11.10 Opioid abuse, uncomplicated; Z88.0 Allergy status to penicillin

== ENCOUNTER 2019-01-19 21:43 | Emergency (ER) | payer OTHER ==
[~2019-01-19] VITALS: Ht 165.1 cm; Wt 59.1 kg
[2019-01-19] MEDS ORDERED: NEXI20TA PO (22:10)
[2019-01-19 22:55] LABS: BASO # 0.1 10^3/uL (0.0-0.2); BASO % 0.5 % (0.0-1.0); EOS # 0.5 10^3/uL (0.0-0.5); EOS % 5.1 % (0.0-3.0); HEMATOCRIT 45.3 % (42.0-52.0); HEMOGLOBIN 15.6 g/dl (13.5-17.5); LYMPH % 38.9 % (24.0-44.0); MEAN CORPUSCULAR HEMOGLOBIN 30.7 pg (27.0-33.0); MEAN CORPUSCULAR HGB CONC 34.4 g/dl (32.0-36.5); MEAN CORPUSCULAR VOLUME 89.2 fl (80.0-96.0); MONO # 0.7 10^3/uL (0.0-0.8); MONO % 6.9 % (0.0-5.0); NEUTROPHILS % 48.1 % (36.0-66.0); PLATELET COUNT, AUTOMATED 279 10^3/uL (150-450); RED BLOOD COUNT 5.08 10^6/uL (4.30-6.10); WHITE BLOOD COUNT 10.3 10^3/uL (4.0-10.0)
[2019-01-19 23:18] LABS: ALBUMIN 3.8 GM/DL (3.2-5.2); ALT/SGPT 155 U/L (12-78); BILIRUBIN,DIRECT 0.2 MG/DL (0.0-0.2); BILIRUBIN,TOTAL 0.4 MG/DL (0.2-1.0); BLOOD UREA NITROGEN 10 MG/DL (7-18); CALCIUM LEVEL 9.2 MG/DL (8.5-10.1); CARBON DIOXIDE LEVEL 29 MEQ/L (21-32); CHLORIDE LEVEL 105 MEQ/L (98-107); GLOMERULAR FILTRATION RATE > 60.0 (>60); GLUCOSE, FASTING 102 MG/DL (70-100); LIPASE 158 U/L (73-393); POTASSIUM SERUM 3.9 MEQ/L (3.5-5.1); SODIUM LEVEL 140 MEQ/L (136-145); TOTAL PROTEIN 7.5 GM/DL (6.4-8.2)
[2019-01-19] MEDS ORDERED: GI COCKTAIL 50ML BTL(HYOSCYAMINE/MAALOX/LIDOCAINE VISCOUS)(1:3:1) PO ONE (23:30)
[2019-01-19] MEDS ORDERED: SUCRALFATE 1 GM TAB PO ONE (23:30)
[2019-01-20] MEDS ORDERED: SUCR1SS PO (01:03)
[2019-01-20] MEDS ORDERED: PROT1TAB2 PO (01:03)
[2019-01-20 01:13] VITALS: BP 135/76
== END 2019-01-20 01:18 | disposition home or self-care (01) ==
LOC: M ED 21:43
DX: K29.70 Gastritis, unspecified, without bleeding (principal); K29.80 Duodenitis without bleeding; G43.909 Migraine, unspecified, not intractable, without status migrainosus; F17.200 Nicotine dependence, unspecified, uncomplicated; Z86.19 Personal history of other infectious and parasitic diseases; Z88.1 Allergy status to other antibiotic agents; Z79.899 Other long term (current) drug therapy

== ENCOUNTER → 2021-02-10 | Outpatient (CLI) | payer OTHER ==
[~2021-02-10] MED LIST: NEXI20TA PO; PROT1TAB2 PO; SUCR1SS PO
[2021-02-10 14:43] LABS: HEMATOCRIT 41.6 % (42.0-52.0); HEMOGLOBIN 14.4 g/dl (13.5-17.5); MEAN CORPUSCULAR HEMOGLOBIN 29.9 pg (27.0-33.0); MEAN CORPUSCULAR HGB CONC 34.6 g/dl (32.0-36.5); MEAN CORPUSCULAR VOLUME 86.5 fl (80.0-96.0); PLATELET COUNT, AUTOMATED 157 10^3/uL (150-450); RED BLOOD COUNT 4.81 10^6/uL (4.30-6.10); WHITE BLOOD COUNT 6.8 10^3/uL (4.0-10.0)
[2021-02-10 15:12] LABS: ALT/SGPT 138 U/L (12-78); BILIRUBIN,TOTAL 0.5 MG/DL (0.2-1.0); BLOOD UREA NITROGEN 17 MG/DL (7-18); CALCIUM LEVEL 9.3 MG/DL (8.5-10.1); CARBON DIOXIDE LEVEL 29 MEQ/L (21-32); CHLORIDE LEVEL 108 MEQ/L (98-107); CREATININE FOR GFR 0.97 MG/DL (0.70-1.30); GLOMERULAR FILTRATION RATE > 60.0 (>60); GLUCOSE, FASTING 78 MG/DL (70-100); SODIUM LEVEL 140 MEQ/L (136-145); TOTAL PROTEIN 7.7 GM/DL (6.4-8.2)
[2021-02-10 15:31] LABS: HEPATITIS B SURFACE ANTIGEN NEGATIVE (NEGATIVE)
[2021-02-10 15:59] LABS: HIV 1&2 SCREEN CENTAUR NEGATIVE (NEGATIVE)
[2021-02-10 16:13] LABS: HEPATITIS C VIRUS ABY INDEX > 11.0 INDEX (<0.8)
[2021-02-10 16:33] LABS: GC DNA AMPLIFICATION NEGATIVE (NEGATIVE)
--- NOTE | 2021-02-10 22:24 | ECGEPIP ---
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
== END ==
LOC: M LAB 13:18
PROVIDERS: ATTEND Family Medicine
DX: F11.20 Opioid dependence, uncomplicated (principal); I44.4 Left anterior fascicular block; R94.31 Abnormal electrocardiogram [ECG] [EKG]

== ENCOUNTER 2022-08-08 20:34 | Emergency (ER) | payer OTHER ==
[~2022-08-08] VITALS: Ht 165.1 cm; Wt 81.8 kg
[2022-08-09] MEDS ORDERED: NEOSPORIN OINT 0.9 GM PKT TOP ONE (00:05)
[2022-08-09] MEDS ORDERED: LIDOCAINE W/EPINEPHRINE 1% 20ML VIAL SC ONE (00:05)
[2022-08-09] MEDS ORDERED: BOOSTRIX VACCINE (TETANUS/DIPHTH/ACEL. PERTUSSIS) 0.5ML SYR IM ONE (00:05)
[2022-08-09 01:03] VITALS: BP 126/78
== END 2022-08-09 01:08 | disposition home or self-care (01) ==
LOC: M ED 20:34
DX: S71.111A Laceration without foreign body, right thigh, initial encounter (principal); W26.0XXA Contact with knife, initial encounter; Y92.89 Other specified places as the place of occurrence of the external cause; Y93.89 Activity, other specified; Y99.0 Civilian activity done for income or pay; E78.5 Hyperlipidemia, unspecified; K21.9 Gastro-esophageal reflux disease without esophagitis; R51.9 Headache, unspecified; B18.2 Chronic viral hepatitis C; B15.9 Hepatitis A without hepatic coma

== ENCOUNTER 2024-07-03 01:51 | Emergency (ER) | payer OTHER, SELFPAY ==
[~2024-07-03] VITALS: Ht 177.8 cm; Wt 83.2 kg
[2024-07-03] MEDS ORDERED: EPINEPHrine 1MG/10ML SYRINGE 1.5IN ONE (01:52)
[2024-07-03] MEDS ORDERED: SODIUM BICARBONATE 8.4% INJ 50ML SYRINGE ONE (01:52)
[2024-07-03 02:04] VITALS: BP 122/58; TEMP 93.5; O2SAT 0
== END 2024-07-03 04:13 | disposition expired ==
LOC: M ED 01:51 → EDBD 01:51 → M ED 04:13
DX: I46.9 Cardiac arrest, cause unspecified (principal); F19.10 Other psychoactive substance abuse, uncomplicated; Z88.1 Allergy status to other antibiotic agents
CPT/HCPCS: 99285; J0171